=== PATIENT | male | born 1985 | race Caucasian/White ===

== ENCOUNTER → 2017-06-22 | Outpatient (REF) | payer BC ==
[~2017-06-22] MED LIST: ADAL40PE4 SQ; AZAT50TA25 PO; KET10 PO; MELO-207 PO; MESA1.2T2 PO; ONDA4TAB PO; OXYC1TAB54 PO; PRE10 PO
[2017-06-22 19:11] LABS: PLATELET COUNT, AUTOMATED 270 K/uL (150-450)
== END ==
PROVIDERS: ATTEND Physician Assistant Medical
DX: R19.7 Diarrhea, unspecified (principal)
CPT/HCPCS: 82040; 82247; 82274; 82310; 82374; 82435; 82565; 82947; 84075; 84132; 84155; 84295; 84450; 84460; 84520; 85025; 87045; 87177

== ENCOUNTER → 2017-08-11 | Outpatient (CLI) | payer BC ==
--- NOTE | 2017-08-11 10:56 | RADIOLOGY IMAGING REPORT ---
FACILITY: [facility] - [place] PATIENT NAME: Heber Iglesias : 1985 MR: [id number] V: [id number] EXAM DATE: ORDERING PHYSICIAN: AMMY BUTLER TECHNOLOGIST: Location: [facility] - [place] Patient: Heber Iglesias : 1985 Visit/Account:[id number] Date of Sevice: 08/11/2017 EXAMINATION: Abdominal ultrasound complete HISTORY: : Crohn's disease, sclerosing cholangitis COMPARISON: MR the abdomen August 18, 2015 FINDINGS: Gallbladder: There are multiple mobile stones within the gallbladder. The gallbladder wall does not appear thickened and measures 1.8 mm in thickness. There is a negative Horta sign by technologist ayden larose. Liver: Negative. Common duct: Normal measuring 4.1 mm. Pancreas: Negative. Spleen: Normal in size and echogenicity measuring 12.3 cm in length. Kidneys: Normal in size and echogenicity, the right measures 10.7 cm in length, and the left 11.2 cm . No hydronephrosis. Upper abdominal aorta and IVC: Negative. Ascites: None. IMPRESSION: Cholelithiasis although no evidence of biliary ductal dilatation gallbladder wall thickening or posit katherine Horta sign. Report Dictated By: Mariposa Nunez MD at 08/11/2017 10:49 AM Report E-Signed By: Mariposa Nunez MD at 08/11/2017 10:51 AM WSN:[email or web address]
== END ==
LOC: US 00:33
PROVIDERS: ATTEND Internal Medicine Gastroenterology
DX: K80.20 Calculus of gallbladder without cholecystitis without obstruction (principal)
CPT/HCPCS: 76700

== ENCOUNTER → 2018-03-14 | Outpatient (CLI) | payer BC ==
[~2018-03-14] MED LIST changes: +GADOBENATE 529MG/1ML 15ML VIAL IVP ONE; +NS(*) 0.9% 50 ML BAG 50 ML ONE
--- NOTE | 2018-03-14 11:42 | RADIOLOGY IMAGING REPORT ---
FACILITY: [facility] PATIENT NAME: Heber Iglesias : 1985 MR: [id number] V: [id number] EXAM DATE: ORDERING PHYSICIAN: AMMY BUTLER TECHNOLOGIST: Location: [facility] - [place] Patient: Heber Iglesias : 1985 Visit/Account:[id number] Date of Sevice: 03/14/2018 ABDOMEN W W/O CONTRAST HISTORY: Primary sclerosing cholangitis ADDITIONAL HISTORY: None. TECHNIQUE: TECHNIQUE: Multiplanar multisequence magnetic resonance imaging of the abdomen with and without intravenous contrast. CONTRAST: 15 mL of MultiHance COMPARISON: MR the abdomen August 18, 2015 FINDINGS: Visualized lung bases: Grossly unremarkable. Liver: Negative. Gallbladder: There are multiple layering gallstones Bile ducts: The common bile duct measures approximately 5 mm in diameter becomes narrowed to 2 mm at the head of the pancreas. Mild stricturing of the intrahepatic biliary tree and common hepatic duct are again noted. No evidence of biliary ductal dilatation Spleen: Negative. Adrenal glands: Negative. Pancreas: Negative. Kidneys: Negative. Vessels/spaces/nodes: No bulky adenopathy or ascities. Visualized GI: Grossly unremarkable. Bones/soft tissues: Unremarkable. IMPRESSION: Cholelithiasis although no evidence of biliary ductal dilatation Mild stricturing of the intrahepatic biliary tree and common hepatic ducts similar to the prior MR. On bile duct measures 5 mm in diameter tapering down to 2 mm at the head the pancreas. Findings are consistent with the clinical history of primary sclerosing cholangitis Report Dictated By: Mariposa Nunez MD at 03/14/2018 11:24 AM Report E-Signed By: Mariposa Nunez MD at 03/14/2018 11:38 AM WSN:[email or web address]
== END ==
LOC: MRI 00:57
PROVIDERS: ATTEND Internal Medicine Gastroenterology
DX: K83.0 Cholangitis (principal)
CPT/HCPCS: 74183; A9577; J7050

== ENCOUNTER → 2018-04-27 | Outpatient (CLI) | payer BC ==
[~2018-04-27] MED LIST changes: -GADOBENATE 529MG/1ML 15ML VIAL IVP ONE; +IOPAMIDOL 76% 75 ML INFUS BTL 75 ML ONE; -NS(*) 0.9% 50 ML BAG 50 ML ONE
--- NOTE | 2018-04-27 15:38 | RADIOLOGY IMAGING REPORT ---
FACILITY: [facility] PATIENT NAME: Heber Iglesias : 1985 MR: [id number] V: [id number] EXAM DATE: ORDERING PHYSICIAN: GILBERTO ARMSTRONG TECHNOLOGIST: Location: [facility] - [place] Patient: Heber Iglesias : 1985 Visit/Account:[id number] Date of Sevice: 04/27/2018 CT abdomen and pelvis with IV contrast Indication: Abdominal pain. Comparison: MR abdomen 03/14/2018.. Technique: Axial CT images were obtained through the abdomen and pelvis during injection of nonioni c iodinated intravenous contrast. Reformatted coronal and sagittal images were also obtained. One of the following dose optimization techniques was utilized in the performance of this exam: Autom ated exposure control; adjustment of the mA and/or kV according to the patient's size; or use of an i terative reconstruction technique. Specific details can be referenced in the facility's radiology C T exam operational policy. Contrast: 75 ml of Isovue-370 IV contrast. Findings: Lower lung [place]: Small focal area of hazy interstitial opacities seen in the lateral aspect of the left lower lobe. Lung bases are clear. Liver: No focal parenchymal abnormality of the liver. Biliary: There are couple small gallstones again seen in the gallbladder without other gallbladder ab normality. The below system is unremarkable and not as well-seen as on the previous MRI. Pancreas: No focal abnormality. Spleen: No focal abnormality. Adrenal glands: Unremarkable. Kidneys / retroperitoneum: No evidence of nephrolithiasis or hydronephrosis. No focal abnormality. Bowel / peritoneum / mesenteries: Diffuse colonic wall thickening more prominent in the cecum and asc ending region of the colon without focal abnormality. Mild inflammatory changes seen around the cecum and ascending colon. The small bowel shows no focal abnormality or obstruction. The appendix is norm al. The stomach is mainly decompressed and grossly normal. Tiny bit of free fluid seen in the pelvis. No fluid collections, free air or other areas of inflammat ion. Lymph node assessment: No pathologic adenopathy identified. Pelvic structures: Appear unremarkable. Vessels: No significant atherosclerotic calcifications seen throughout a nonaneurysmal abdominal aort a and branches. Musculoskeletal / Body wall: No acute or aggressive osseous abnormality. IMPRESSION: 1. Diffuse colitis but more prominent in the cecum and ascending region. No focal abnormality or obst ruction. Consideration to follow-up colonoscopy after resolution acute processes to assess for any un derlying abnormality. 2. Continued cholelithiasis. No indication of cholecystitis. 3. The anterolateral left lower lobe does show small focal area of interstitial opacity. This could r epresent a early pneumonitis. I called report to GILBERTO ARMSTRONG at 04/27/2018 3:33 PM. Report Dictated By: Jaziel Garcia at 04/27/2018 3:24 PM Report E-Signed By: Jaziel Garcia at 04/27/2018 3:34 PM WSN:[id number]
== END ==
LOC: CT 14:22
PROVIDERS: ATTEND Nurse Practitioner Family
DX: K52.9 Noninfective gastroenteritis and colitis, unspecified (principal); K80.20 Calculus of gallbladder without cholecystitis without obstruction
CPT/HCPCS: 74177; Q9967

== ENCOUNTER → 2018-04-27 | Outpatient (REF) | payer BC ==
[~2018-04-27] MED LIST changes: -IOPAMIDOL 76% 75 ML INFUS BTL 75 ML ONE
[2018-04-27 13:26] LABS: PLATELET COUNT, AUTOMATED 218 K/uL (150-450)
== END ==
PROVIDERS: ATTEND Nurse Practitioner Family
DX: R10.9 Unspecified abdominal pain (principal)
CPT/HCPCS: 82040; 82247; 82310; 82374; 82435; 82565; 82947; 84075; 84132; 84155; 84295; 84450; 84460; 84520; 85025

== ENCOUNTER → 2018-10-13 | Outpatient (CLI) | payer BC ==
--- NOTE | 2018-10-13 10:39 | RADIOLOGY IMAGING REPORT ---
FACILITY: [facility] PATIENT NAME: Heber Iglesias : 1985 MR: [id number] V: [id number] EXAM DATE: ORDERING PHYSICIAN: AYAN SOSA TECHNOLOGIST: Location: [facility] - [place] Patient: Heber Iglesias : 1985 Visit/Account:[id number] Date of Sevice: 10/13/2018 EXAMINATION: Abdominal ultrasound complete HISTORY: Primary sclerosing cholangitis COMPARISON: August 11, 2017 FINDINGS: Gallbladder: There multiple gallstones present although no evidence of a positive Horta sign, or gal lbladder wall thickening Liver: Negative. Common duct: Minimally prominent at 5.6 mm Pancreas: Unremarkable as imaged Spleen: Normal echogenicity although spleen is minimally prominent measuring 12.5 cm in length. Kidneys: Normal in size and echogenicity, the right measures 11.4 cm in length, and the left 10.3 cm . No hydronephrosis. Upper abdominal aorta and IVC: Negative. Ascites: None. IMPRESSION: Cholelithiasis with a negative Horta sign. There is minimal biliary ductal dilatation of 5.6 mm Spleen is mildly prominent Report Dictated By: Mariposa Nunez MD at 10/13/2018 10:30 AM Report E-Signed By: Mariposa Nunez MD at 10/13/2018 10:34 AM GARRETN:PHIL
== END ==
LOC: US 01:04
PROVIDERS: ATTEND Internal Medicine
DX: K80.20 Calculus of gallbladder without cholecystitis without obstruction (principal)
CPT/HCPCS: 76700